=== PATIENT | female | born 1970 | race American Indian/Alaskan Native ===

== ENCOUNTER 2018-12-02 14:39 | Emergency (ER) | payer BC, OTHER ==
[2018-12-02 14:48] VITALS: BP 132/84
--- NOTE | 2018-12-02 14:58 | Emergency Department Report ---
Chief Complaint: Extremity Injury, Lower Stated Complaint: W/C R FOOT/ANKLE PAIN Time Seen by Provider: 12/02/18 14:54 - HPI History of Present Illness: This is a 48 y.o. F. that presents to the ER with pain to right foot and ankle. She was walking down the stairs at work when she missed a step around 1215 today. She reports increased swelling and pain. Denies loc, hitting head, weakness, or numbness/tingling. - Exam Vital Signs: Vital Signs 12/02/18 14:45 Temperature 97.8 F Pulse Rate 88 Respiratory 18 Rate Blood Pressure 132/84 O2 Sat by Pulse 97 Oximetry MSE screening note: Focused history and physical exam performed. Due to findings the following was ordered: XR of right foot and ankle ED Disposition for MSE Condition: Stable
--- NOTE | 2018-12-02 16:27 | XRay Report ---
PROCEDURE: XR FOOT 3+V RT TECHNIQUE: Right foot radiographs, AP, lateral, and oblique views. HISTORY: Right foot pain, swelling, s/p fall COMPARISONS: None . FINDINGS: Fracture (s) and/or Dislocation(s): None . Alignment: Hallux valgus deformity of the first MTP joint is seen . Joint space(s): Normal . Soft tissues: Normal . Bone mineralization: Normal . Foreign bodies: None . Calcaneal spurring: Off the posterior and plantar surface . IMPRESSION: No acute abnormality. This document is electronically signed by Gisselle Messina MD., Dec 02 2018 04:25:01 PM ET
--- NOTE | 2018-12-02 16:54 | XRay Report ---
PROCEDURE: XR ANKLE 3+V RT TECHNIQUE: Right ankle radiographs, AP, lateral, and oblique views. HISTORY: pain swelling s/p fall COMPARISONS: None . FINDINGS: Fracture (s) and/or Dislocation(s): None . Alignment: Normal . Joint space(s): Normal . Soft tissues: Mild lateral soft tissue swelling . Bone mineralization: Normal . Foreign bodies: None . Calcaneal spurring: Small plantar calcaneal spur. Small enthesophyte of the Achilles tendon . IMPRESSION: No acute bony abnormality of the right ankle. Mild lateral soft tissue swelling . This document is electronically signed by Zuri Colon MD., Dec 02 2018 04:52:35 PM ET
--- NOTE | 2018-12-02 17:27 | Emergency Department Report ---
HPI - General Chief Complaint: Extremity Injury, Lower Time Seen by Provider: 12/02/18 14:54 - HPI HPI: This is a 48-year-old female presents to ED complaining of right ankle pain after accidentally twisting her ankle while she was at work today. Patient states she did not fall. Patient is a bit to sit her right ankle. She is complaining of right ankle pain since the incident. She denies loss of consciousness or fall. Patient states she is able to ambulate. Patient states pain is worse with applied pressure. ED Past Medical Hx - Past Medical History Hx Hypertension: Yes - Surgical History Additional Surgical History: x2,left hand - Social History Smoking Status: Never Smoker Substance Use Type: None - Medications Home Medications: Home Medications Medication Instructions Recorded Confirmed Last Taken Type Ibuprofen [Motrin] 800 mg PO Q8HR #30 tablet 12/02/18 Unknown Rx ED Review of Systems ROS: Stated complaint: W/C R FOOT/ANKLE PAIN Other details as noted in HPI Comment: All other systems reviewed and negative Physical Exam - Physical Exam Vital Signs: Vital Signs 12/02/18 14:45 Temperature 97.8 F Pulse Rate 88 Respiratory 18 Rate Blood Pressure 132/84 O2 Sat by Pulse 97 Oximetry Physical Exam: GENERAL: Alert and oriented x3, no apparent distress, Normal Gait, atraumatic. HEAD: Head is normocephalic and a-traumatic. EXTREMITIES/MUSCULOSKELETAL: No cyanosis, clubbing, rash, lesions or edema. Full ROM bilaterally. Pedal Pulses 2+ bilaterally. LE 5+ strength bilaterally, no swelling to the ankle, she able to ambulate without any problems NEUROLOGIC: The patient is cooperative with no focal neurologic deficits. SKIN: Warm and dry, No lesions, No ulceration or induration present. ED Course Vital Signs 12/02/18 14:45 Temperature 97.8 F Pulse Rate 88 Respiratory 18 Rate Blood Pressure 132/84 O2 Sat by Pulse 97 Oximetry ED Medical Decision Making - Radiology Data Radiology results: report reviewed Mild ankle effusion, no acute actual dislocation Critical care attestation.: If time is entered above; I have spent that time in minutes in the direct care of this critically ill patient, excluding procedure time. ED Disposition Clinical Impression: Ankle pain, right Disposition: [id number] TO HOME OR SELFCARE Is pt being admited?: No Does the pt Need Aspirin: No Condition: Stable Instructions: Arthralgia (ED), Ankle Sprain (ED) Additional Instructions: Make sure to follow up with the primary care physician as discussed. Take all your medications as you've been prescribed. If you have any worsening symptoms or develop new symptoms please return to ED immediately. Prescriptions: Ibuprofen [Motrin] 800 mg PO Q8HR #30 tablet Referrals: SOLE HARRIS MD [Primary Care Provider] - 3-5 Days Forms: Work/School Release Form(ED) Time of Disposition: 17:25
== END 2018-12-02 17:34 | disposition home or self-care (01) ==
LOC: ED 14:39
DX: M25.571 Pain in right ankle and joints of right foot (principal); I10 Essential (primary) hypertension; X50.1XXA Overexertion from prolonged static or awkward postures, initial encounter; Y93.89 Activity, other specified; Y92.69 Other specified industrial and construction area as the place of occurrence of the external cause; Y99.8 Other external cause status
CPT/HCPCS: 99283